=== PATIENT | male | born 1975 | race Caucasian/White ===

== ENCOUNTER 2022-05-30 08:50 | Emergency (ER) | payer SELFPAY ==
[2022-05-30 09:49] LABS: BASO% 0.2 % (0-3); HEMATOCRIT 51.9 % (39.0-50.0); HEMOGLOBIN 16.8 g/dl (14.0-18.0); IMMATURE GRANULOCYTES 3.1 % (0.0-5.0); LYMPH% 13.2 % (15-41); MEAN CELL VOLUME 87.4 fL CALC (80.0-100.0); MEAN CORPUSCULAR HGB 28.3 pG CALC (26.0-32.0); MEAN CORPUSCULAR HGB CONC 32.4 g/dL CAL (32.0-36.0); MONO% 10.4 % (2-13); NEUT# 7.33 thou/uL (1.82-7.42); NEUT% 72.1 % (42-76); RED BLOOD COUNT 5.94 mill/uL (4.70-6.10); RED CELL DISTRI WIDTH 12.4 % (11.5-15.5)
[2022-05-30 10:13] LABS: ALBUMIN 4.2 g/dL (3.2-5.0); ALKALINE PHOSPHATASE 61 u/l (38-126); ANION GAP 11 (6-22 (CALC)); BILIRUBIN, TOTAL 0.3 mg/dL (0.2-1.3); BUN 21 mg/dL (9-20); BUN/CREATININE RATIO 19 (12-20 (CALC)); CARBON DIOXIDE 29 mmol/l (22-30); CHLORIDE 103 mmol/l (95-108); CREATININE 1.1 mg/dL (0.7-1.3); GFR FOR AFR.AMER. > 60 ML/MIN (>=60 (CALC)); GFR OTHER RACES > 60 ML/MIN (>=60 (CALC)); POTASSIUM 3.8 mmol/l (3.5-5.1); SGOT/AST 28 u/l (17-59); SODIUM 139 mmol/l (137-146); TOTAL PROTEIN 7.2 g/dL (6.3-8.2)
[2022-05-30] MEDS ORDERED: AMOX/K CLAV875 M1 PO (12:16)
[2022-05-30] MEDS ORDERED: PROTONIX40 M2 PO (12:16)
[2022-05-30] MEDS ORDERED: DOXYCYCLINE100 MG PO (12:16)
[2022-05-30 12:29] VITALS: BP 150/85
== END 2022-05-30 12:48 | disposition home or self-care (01) | DRG 948 ==
LOC: ED 08:50
PROVIDERS: Family Medicine
DX: R68.83 Chills (without fever) (principal); R06.02 Shortness of breath; K44.9 Diaphragmatic hernia without obstruction or gangrene; R61 Generalized hyperhidrosis; Z20.822 Contact with and (suspected) exposure to COVID-19
CPT/HCPCS: Q9967